=== PATIENT | male | born 1970 | race Caucasian/White ===

== ENCOUNTER 2017-06-02 13:06 | Emergency (ER) | payer OTHER, MEDICAID ==
[2017-06-02 13:13] VITALS: O2SAT 96
--- NOTE | 2017-06-02 13:13 | EDPHY ---
H & P Time Seen by Provider: 06/02/17 13:11 HPI/ROS: CHIEF COMPLAINT: Left lower quadrant abdominal pain x2 days HISTORY OF PRESENT ILLNESS: 47-year-old homeless male arrives via ambulance complaining of left lower quadrant abdominal pain for the past 2 days with associated diarrhea. No vomiting. No fever or chills. Last drink of alcohol was yesterday. No urinary abnormality. No testicular or genitalia pain. No trauma. No fever or chills. No history of abdominal surgeries Patient has secondary complaint of ongoing scabies like rash for which he was evaluated in [place]. PRIMARY CARE PROVIDER:[facility] REVIEW OF SYSTEMS: A ten point review of systems was performed and is negative with the exception of the items mentioned in the HPI PAST MEDICAL & SURGICAL HISTORY: Chronic kidney disease. Alcoholism. SOCIAL HISTORY: daily alcohol use. Daily cigarette use. Moved from [place] 2 days ago to [place] PHYSICAL EXAM (Prior to examination, patient consented to physical exam, hands were washed and my usual and customary physical exam procedures followed) 1) GENERAL: Well-developed, well-nourished, alert and oriented. Appears uncomfortable guarding left lower quadrant . 2) HEAD: Normocephalic, atraumatic 3) HEENT: Pupils equal, round, reactive to light bilaterally. Sclera anicteric. Nasopharynx, oropharynx, clear, no lesions. Dry mucous membranes 4) NECK: Full range of motion, no meningeal signs. 5) LUNGS: Clear auscultation bilaterally, no wheezes, no rhonchi, no retractions. 6) HEART: Regular rate and rhythm, no murmur, no heave, no gallop. 7) ABDOMEN: guarding left lower quadrant, tender to palpation left lower quadrant.negative McBurney's, negative Seo's, negative Rovsing's, negative peritoneal sign, 8) MUSCULOSKELETAL: Moving all extremities, no focal areas of tenderness, no obvious trauma. No peripheral edema or discoloration. 9) BACK: No CVA tenderness, no midline vertebral tenderness, no fluctuance, no step-off, no obvious trauma, no visual or palpable abnormality. 10) SKIN: Multiple excoriated punctate lesions with no signs of cellulitis or abscess 11) : Normal male external genitalia bilateral cremasteric reflex present and brisk no testicular swelling or tenderness. . DIFFERENTIAL DIAGNOSIS: iMy differential diagnosis includes, but is not limited to, acute appendicitis, acute cholecystitis, bowel obstruction, acute pancreatitis, testicular torsion, gastritis and urinary tract infection. The patient understands that this diagnosis is provisional and can never be 100% accurate. This is a partial list of diagnoses considered. These considerations are based on history, physical exam, past history and reassessment. (Jose Raul Randolph) Constitutional: Initial Vital Signs Temperature (C) 36.6 C 06/02/17 13:08 Heart Rate 67 06/02/17 13:08 Respiratory Rate 16 06/02/17 13:08 Blood Pressure 122/79 H 06/02/17 13:08 O2 Sat (%) 96 06/02/17 13:08 O2 Delivery Mode Room Air Allergies/Adverse Reactions: No Known Allergies Allergy (Unverified 06/02/17 13:13) Home Medications: Medication Instructions Recorded Lisinopril 06/02/17 Medical Decision Making - Diagnostics Imaging Results: Imaging Impressions Abdomen/Pelvis CT 06/02/17 14:07 Impression: 1. Diffuse bilateral thickening, which could be related to inflammation/ infection, underdistention, or sequela of bladder outlet obstruction. 1. Innumerable renal cysts, with innumerable high attenuation structures in the kidneys, most likely representing hemorrhagic cysts, but incompletely characterized on head CT. 3. Nodularity nephrolithiasis. 4. Additional findings as above. Attention: This examination does not use radiographic contrast, and as such, provides only a limited evaluation of the abdomen, pelvis and retroperitoneum. Findings discussed with Grabiel Randolph PA-C on June 02, 2017 at 1439 hours. Imaging Impressions Abdomen/Pelvis CT 06/02/17 14:07 Impression: 1. Diffuse bilateral thickening, which could be related to inflammation/ infection, underdistention, or sequela of bladder outlet obstruction. 1. Innumerable renal cysts, with innumerable high attenuation structures in the kidneys, most likely representing hemorrhagic cysts, but incompletely characterized on head CT. 3. Nodularity nephrolithiasis. 4. Additional findings as above. Attention: This examination does not use radiographic contrast, and as such, provides only a limited evaluation of the abdomen, pelvis and retroperitoneum. Findings discussed with Grabiel Randolph PA-C on June 02, 2017 at 1439 hours. Images reviewed myself (Jose Raul Randolph) ED Course/Re-evaluation: I discussed this case and evaluated the patient personally. In addition I reviewed all the laboratory studies. We will perform imaging to rule out sigmoid diverticulitis CT scan is unremarkable however his creatinine is 3.1. Apparently, this patient knows about chronic renal insufficiency from [place]. He just arrived from [place]. We will also get him followed up with case management and a digitizer. (Yao Price) This patient was re-evaluated with serial exams. I discussed his CT imaging and discussed his elevated creatinine. He states that this is an ongoing issue for him for which he was evaluated in [place] off. I recommend he have further evaluation for this, recommend possible admission, however he states that he simply wants to be discharged and will "deal with it later". Explained him the dangers of chronic kidney disease explained him that lack of appropriate management a result in and permanent and chronic disability. He verbalized understanding of this. The case finisher has spoken with the patient arrange for a follow-up on to June 10 at 9:10 a.m. at the [facility]. Highly recommend he keep this appointment. Regarding his abdomen, he has been observed eating in the ER, walking around and has no further complaints of abdominal pain. Doubt acute surgical abdominal pathology, doubt acute appendicitis, doubt testicular torsion absence of testicular pain and normal genital examination. He refused to provide urine sample in the ER (Jose Raul Randolph) - Data Points Laboratory Results: Laboratory Results 06/02/17 13:18 06/02/17 13:18 06/02/17 06/02/17 06/02/17 15:10 13:18 13:18 WBC 10.81 10^3/uL H 10^3/uL (3.80-9.50) RBC 5.61 10^6/uL 10^6/uL (4.40-6.38) Hgb 17.8 g/dL H g/dL (13.7-17.5) Hct 51.6 % H % (40.0-51.0) MCV 92.0 fL fL (81.5-99.8) MCH 31.7 pg pg (27.9-34.1) MCHC 34.5 g/dL g/dL (32.4-36.7) RDW 12.0 % % (11.5-15.2) Plt Count 272 10^3/uL 10^3/uL (150-400) MPV 11.2 fL fL (8.7-11.7) Neut % (Auto) 67.1 % % (39.3-74.2) Lymph % (Auto) 21.4 % % (15.0-45.0) Hand % (Auto) 9.2 % % (4.5-13.0) Eos % (Auto) 1.4 % % (0.6-7.6) Baso % (Auto) 0.6 % % (0.3-1.7) Nucleat RBC Rel Count 0.0 % % (0.0-0.2) Absolute Neuts (auto) 7.27 10^3/uL H 10^3/uL (1.70-6.50) Absolute Lymphs (auto) 2.31 10^3/uL 10^3/uL (1.00-3.00) Absolute Monos (auto) 0.99 10^3/uL H 10^3/uL (0.30-0.80) Absolute Eos (auto) 0.15 10^3/uL 10^3/uL (0.03-0.40) Absolute Basos (auto) 0.06 10^3/uL 10^3/uL (0.02-0.10) Absolute Nucleated RBC 0.00 10^3/uL 10^3/uL (0-0.01) Immature Gran % 0.3 % % (0.0-1.1) Immature Gran # 0.03 10^3/uL 10^3/uL (0.00-0.10) Sodium 133 mEq/L L mEq/L (134-144) Potassium 4.3 mEq/L mEq/L (3.5-5.2) Chloride 91 mEq/L L mEq/L (97-110) Carbon Dioxide 27 mEq/l mEq/l (22-31) Anion Gap 15 mEq/L mEq/L (8-16) BUN 52 mg/dL H mg/dL (7-23) Creatinine 3.1 mg/dL H mg/dL (0.7-1.3) Estimated GFR 22 Glucose 100 mg/dL mg/dL (70-100) Calcium 9.7 mg/dL mg/dL (8.5-10.4) Total Bilirubin 1.0 mg/dL mg/dL (0.1-1.4) Conjugated Bilirubin 0.3 mg/dL mg/dL (0.0-0.5) Unconjugated Bilirubin 0.7 mg/dL mg/dL (0.0-1.1) AST 40 IU/L IU/L (17-59) ALT 48 IU/L IU/L (21-72) Alkaline Phosphatase 86 IU/L IU/L (38-126) Total Protein 8.6 g/dL H g/dL (6.3-8.2) Albumin 4.8 g/dL g/dL (3.5-5.0) Lipase 56 IU/L IU/L (23-300) Urine Color RADHA Urine Appearance MODERATELY TURBID Urine pH 5.0 (5.0-7.5) Ur Specific Warner 1.025 (1.002-1.030) Urine Protein 2+ H (NEGATIVE) Urine Ketones TRACE H (NEGATIVE) Urine Blood 1+ H (NEGATIVE) Urine Nitrate NEGATIVE (NEGATIVE) Urine Bilirubin NEGATIVE (NEGATIVE) Urine Urobilinogen NEGATIVE EU EU (0.2-1.0) Ur Leukocyte Esterase NEGATIVE (NEGATIVE) Urine RBC 25-50 /hpf H /hpf (0-3) Urine WBC 10-15 /hpf H /hpf (0-3) Ur Epithelial Cells TRACE /lpf /lpf (NONE-1+) Hyaline Casts >182 /lpf H /lpf (0-1) Urine Mucus 1+ /lpf /lpf (NONE-1+) Urine Glucose NEGATIVE (NEGATIVE) Medications Given: Discontinued Medications Sodium Chloride (Ns) 1,000 mls @ 0 mls/hr IV ONCE ONE PRN Reason: Wide Open Stop: 06/02/17 13:34 Last Admin: 06/02/17 13:55 Dose: 1,000 mls Departure - Departure Disposition: Home, Routine, Self-Care Clinical Impression: Elevated serum creatinine Abdominal pain Qualifiers: Abdominal location: left lower quadrant Qualified Code(s): R10.32 - Left lower quadrant pain Condition: Good Instructions: Chronic Kidney Disease (ED), Acute Abdominal Pain (ED) Additional Instructions: You have declined further evaluation for your elevated creatinine/abnormal kidney test. It is very important to follow up with primary care provider and with a digitizer ( [facility]). Return to the emergency department immediately if you would like further evaluation for your kidney disease, few of change in urinary habits, if you develop new or worsening abdominal pain or any other symptoms that concern you Referrals: [facility],. [Clinic] - 06/10/17 9:10 am
[2017-06-02 13:30] LABS: % IMMATURE GRANULYOCYTES 0.3 % (0.0-1.1); ABSOLUTE IMMATURE GRANULOCYTES 0.03 10^3/uL (0.00-0.10); ADD DIFF? NO; ADD MORPH? NO; ADD SCAN? NO; ATYPICAL LYMPHOCYTE FLAG 0 (0-99); FRAGMENT RBC FLAG 0 (0-99); HEMATOCRIT 51.6 % (40.0-51.0); HEMOGLOBIN 17.8 g/dL (13.7-17.5); LEFT SHIFT FLG 0 (0-99); LIPEMIA HEMOLYSIS FLAG 90 (0-99); MEAN CELL HEMOGLOBIN 31.7 pg (27.9-34.1); MEAN CELL HEMOGLOBIN CONCENTR. 34.5 g/dL (32.4-36.7); MEAN PLATELET VOLUME 11.2 fL (8.7-11.7); PLATELET CLUMPS FLAG 0 (0-99); PLATELET COUNT 272 10^3/uL (150-400); RED BLOOD CELL COUNT 5.61 10^6/uL (4.40-6.38)
[2017-06-02] MEDS ORDERED: NS 1,000 ML IV ONE (13:33)
[2017-06-02 14:00] LABS: ALANINE AMINOTRANSFERASE 48 IU/L (21-72); ALBUMIN 4.8 g/dL (3.5-5.0); ALKALINE PHOSPHATASE 86 IU/L (38-126); ANION GAP 15 mEq/L (8-16); ASPARTATE AMINOTRANSFERASE 40 IU/L (17-59); BILIRUBIN-CONJUGATED 0.3 mg/dL (0.0-0.5); BILIRUBIN-UNCONJUGATED 0.7 mg/dL (0.0-1.1); CALCIUM 9.7 mg/dL (8.5-10.4); CARBON DIOXIDE 27 mEq/l (22-31); CHLORIDE 91 mEq/L (97-110); CREATININE 3.1 mg/dL (0.7-1.3); GLOMERULAR FILTRATION RATE 22; GLUCOSE 100 mg/dL (70-100); POTASSIUM 4.3 mEq/L (3.5-5.2); SODIUM 133 mEq/L (134-144); TOTAL PROTEIN 8.6 g/dL (6.3-8.2)
[2017-06-02 15:25] LABS: COLOR AMBER; LEUKOCYTE ESTERASE,URINE NEGATIVE (NEGATIVE); MUCUS 1+ /lpf (NONE-1+); NITRITE,URINE NEGATIVE (NEGATIVE); RBC,URINE 25-50 /hpf (0-3)
[2017-06-02 15:26] LABS: HYALINE CASTS >182 /lpf (0-1)
[2017-06-02 16:22] VITALS: BP 142/59; PULSE 82; RESP 18; TEMP 98.4
== END 2017-06-02 15:20 | disposition home or self-care (01) ==
DX: R10.32 Left lower quadrant pain (principal); R79.89 Other specified abnormal findings of blood chemistry; F17.210 Nicotine dependence, cigarettes, uncomplicated; R19.7 Diarrhea, unspecified

== ENCOUNTER 2017-06-02 17:46 | Emergency (ER) | payer SELFPAY ==
[2017-06-02 17:52] VITALS: BP 122/80; PULSE 78; RESP 18; TEMP 97.5; O2SAT 96
== END 2017-06-02 18:18 | disposition left against medical advice (07) ==
DX: Z53.21 Procedure and treatment not carried out due to patient leaving prior to being seen by health care provider (principal)